=== PATIENT | female | born 1950 | race Caucasian/White ===

== ENCOUNTER 2018-01-06 08:33 | Inpatient (IN) ==
[2018-01-06] MEDS ORDERED: LEVOFLOXACIN INJ 500 MG in PREMIX 1 EACH IV STA (09:07)
[2018-01-06] MEDS ORDERED: FUROSEMIDE 100 MG/10 ML VIAL IV STA (09:07)
[2018-01-06 09:44] LABS: Basophils # 0.1 10*3/uL (0.0-0.2); Basophils % 0.3 % (0.0-0.8); Eosinophils % 0.1 % (0.00-10.9); Hemoglobin 14.8 GM/DL (12.0-16.0); Immature Granulocytes % 0.3 %; Immature Granulocytes Absolute 0.05 #; Lymphocytes # 0.4 10*3/uL (1.4-4.0); Lymphocytes % 2.8 % (21.3-54.2); Mean Corpuscular HGB Conc 32.9 GM/DL (32-36); Mean Corpuscular Hemoglobin 33 PG (27-34); Mean Corpuscular Volume 100.2 FL (87-102); Mean Platelet Volume 9.6 FL (9.6-12.0); Monocytes % 6.9 % (1.7-12.7); Neutrophils # 12.9 10*3/uL (1.4-7.4); Neutrophils % 89.6 % (38.7-73.9); Platelet Count 220 T/CUMM (130-400); Red Blood Count 4.49 MC/CUMM (3.8-5.5); Red Cell Distribution Width 14.1 % (9.3-17.3); White Blood Count 14.5 T/CUMM (4-12)
[2018-01-06] MEDS ORDERED: ALBUTEROL/IPRATROPIUM 3 ML NEB RESP TX STA (09:47)
[2018-01-06 10:22] LABS: Band Neutrophils 4 % (0-10); Giant Platelets Few; Hypochromasia 1+; Lymphocytes 3 % (20-55); Platelet Estimate Adequate; Segmented Neutrophils 81 % (50-85); Total Cells Counted 100
[2018-01-06] MEDS ORDERED: diphenhydrAMINE CAP 25 MG CAPSULE PO PRN (10:25)
[2018-01-06] MEDS ORDERED: DOCUSATE SODIUM 100 MG CAPSULE PO PRN (10:25)
[2018-01-06] MEDS ORDERED: guaiFENesin/DM ER 600-30 MG TABLET PO PRN (10:25)
[2018-01-06] MEDS ORDERED: ONDANSETRON 4 MG/2 ML VIAL IV PRN (10:25)
[2018-01-06] MEDS ORDERED: ACETAMINOPHEN 325 MG TABLET PO PRN (10:25)
[2018-01-06] MEDS ORDERED: ALBUTEROL 2.5 MG/3 ML NEB RESP TX PRN (10:27)
[2018-01-06 10:43] LABS: Alanine Aminotransferase 111 U/L (13-56); Albumin 2.8 G/DL (3.4-5.0); Alkaline Phosphatase 97 U/L (45-117); Aspartate Amino Transferase 75 U/L (0-37); Blood Urea Nitrogen 19 MG/DL (7-18); Calcium 9.1 MG/DL (8.5-10.1); Glucose 96 MG/DL (74-106); Osmolality,Calculated 280.4 MOS/KG (273-304); Potassium 4.3 MMOL/L (3.5-5.1); Sodium 140 MMOL/L (136-145); Total Protein 7.2 G/DL (6.4-8.3); Troponin I Only < 0.015 NG/ML (0.00-0.045)
[2018-01-06] MEDS: CHOLECALCIFEROL 1,000 UNIT TABLET PO SCH (12:25)
[2018-01-06] MEDS: VENLAFAXINE XR 75 MG CAPSULE PO SCH (12:25)
[2018-01-06] MEDS: EZETIMIBE 10 MG TABLET PO SCH (12:26)
[2018-01-06] MEDS: ASPIRIN CHEW 81 MG TABLET PO SCH (12:26)
[2018-01-06] MEDS: PANTOPRAZOLE 40 MG TABLET PO SCH (12:26)
[2018-01-06] MEDS: FUROSEMIDE 40 MG TABLET PO SCH (12:26)
[2018-01-06] MEDS: CYANOCOBALAMIN 500 MCG TABLET PO SCH (12:27)
[2018-01-06] MEDS: RAMIPRIL 5 MG CAPSULE PO SCH (12:27)
[2018-01-06] MEDS: ALBUTEROL/IPRATROPIUM 3 ML NEB RESP TX SCH ×2 (13:00→19:23)
[2018-01-06] MEDS: methylPREDNISolone SOD SUC 40 MG/1 ML VIAL IV SCH ×2 (13:37→21:11)
[2018-01-06] MEDS: MELOXICAM 7.5 MG TABLET PO SCH (21:10)
[2018-01-06] MEDS: POTASSIUM CHLORIDE 20 MEQ TABLET PO SCH (21:10)
[2018-01-06] MEDS: SIMVASTATIN 40 MG TABLET PO SCH (21:11)
[2018-01-06] MEDS: ATENOLOL 50 MG TABLET PO SCH (21:11)
[2018-01-06] MEDS: ENOXAPARIN 40 MG/0.4 ML SYRINGE SUBCUT SCH (21:14)
[2018-01-07] MEDS: ALBUTEROL/IPRATROPIUM 3 ML NEB RESP TX SCH ×4 (00:38→19:19)
[2018-01-07] MEDS: methylPREDNISolone SOD SUC 40 MG/1 ML VIAL IV SCH ×3 (05:47→20:17)
[2018-01-07 05:55] LABS: Basophils % 0.1 % (0.0-0.8); Hematocrit 44.3 VOL% (35.7-47.0); Hemoglobin 14.9 GM/DL (12.0-16.0); Immature Granulocytes % 0.5 %; Immature Granulocytes Absolute 0.06 #; Lymphocytes # 0.2 10*3/uL (1.4-4.0); Lymphocytes % 1.4 % (21.3-54.2); Mean Corpuscular HGB Conc 33.6 GM/DL (32-36); Mean Corpuscular Hemoglobin 33 PG (27-34); Mean Corpuscular Volume 96.5 FL (87-102); Mean Platelet Volume 9.9 FL (9.6-12.0); Monocytes # 0.3 10*3/uL (0.11-0.8); Monocytes % 2.1 % (1.7-12.7); Neutrophils # 11.7 10*3/uL (1.4-7.4); Neutrophils % 95.9 % (38.7-73.9); Platelet Count 230 T/CUMM (130-400); Red Blood Count 4.59 MC/CUMM (3.8-5.5); Red Cell Distribution Width 13.9 % (9.3-17.3); White Blood Count 12.2 T/CUMM (4-12)
[2018-01-07 06:16] LABS: Band Neutrophils 1 % (0-10); Giant Platelets Few; Hypochromasia 1+; Lymphocytes 1 % (20-55); Platelet Estimate Adequate; Segmented Neutrophils 95 % (50-85); Total Cells Counted 100
[2018-01-07 06:32] LABS: Calcium 8.8 MG/DL (8.5-10.1); Osmolality,Calculated 291.1 MOS/KG (273-304); Potassium 4.8 MMOL/L (3.5-5.1); Risk Ratio 5.06; Thyroid Stimulating Hormone 0.008 uIU/ml (0.358-3.74); VLDL CHOLESTEROL 18.4 MG/DL
[2018-01-07] MEDS: RAMIPRIL 5 MG CAPSULE PO SCH (08:41)
[2018-01-07] MEDS: VENLAFAXINE XR 75 MG CAPSULE PO SCH (08:42)
[2018-01-07] MEDS: FUROSEMIDE 40 MG TABLET PO SCH (08:42)
[2018-01-07] MEDS: MULTIVITAMIN (OCUVITE) TABLET PO SCH (08:42)
[2018-01-07] MEDS: CYANOCOBALAMIN 500 MCG TABLET PO SCH (08:42)
[2018-01-07] MEDS: CHOLECALCIFEROL 1,000 UNIT TABLET PO SCH (08:42)
[2018-01-07] MEDS: POTASSIUM CHLORIDE 20 MEQ TABLET PO SCH ×2 (08:42→20:15)
[2018-01-07] MEDS: ASPIRIN CHEW 81 MG TABLET PO SCH (08:42)
[2018-01-07] MEDS: PANTOPRAZOLE 40 MG TABLET PO SCH (08:42)
[2018-01-07] MEDS: MULTIVITAMIN (CENTRUM) TABLET PO SCH (08:42)
[2018-01-07] MEDS: EZETIMIBE 10 MG TABLET PO SCH (08:42)
[2018-01-07] MEDS ORDERED: LEVOFLOXACIN INJ 750 MG in PREMIX 1 EACH IV SCH (09:00)
[2018-01-07] MEDS: SIMVASTATIN 40 MG TABLET PO SCH (20:15)
[2018-01-07] MEDS: MELOXICAM 7.5 MG TABLET PO SCH (20:15)
[2018-01-07] MEDS: ATENOLOL 50 MG TABLET PO SCH (20:15)
[2018-01-07] MEDS: ENOXAPARIN 40 MG/0.4 ML SYRINGE SUBCUT SCH (20:16)
[2018-01-08] MEDS: ALBUTEROL/IPRATROPIUM 3 ML NEB RESP TX SCH ×2 (00:15→07:37)
[2018-01-08] MEDS: methylPREDNISolone SOD SUC 40 MG/1 ML VIAL IV SCH (04:36)
[2018-01-08 07:32] VITALS: BP 115/71
[2018-01-08] MEDS ORDERED: LEVOFLOXACIN 750 MG TABLET PO SCH (09:00)
[2018-01-08] MEDS: FUROSEMIDE 40 MG TABLET PO SCH (09:49)
[2018-01-08] MEDS: POTASSIUM CHLORIDE 20 MEQ TABLET PO SCH (09:49)
[2018-01-08] MEDS: EZETIMIBE 10 MG TABLET PO SCH (09:49)
[2018-01-08] MEDS: RAMIPRIL 5 MG CAPSULE PO SCH (09:49)
[2018-01-08] MEDS: ASPIRIN CHEW 81 MG TABLET PO SCH (09:49)
[2018-01-08] MEDS: CHOLECALCIFEROL 1,000 UNIT TABLET PO SCH (09:49)
[2018-01-08] MEDS: PANTOPRAZOLE 40 MG TABLET PO SCH (09:49)
[2018-01-08] MEDS: MULTIVITAMIN (CENTRUM) TABLET PO SCH (09:50)
[2018-01-08] MEDS: VENLAFAXINE XR 75 MG CAPSULE PO SCH (09:50)
[2018-01-08] MEDS: CYANOCOBALAMIN 500 MCG TABLET PO SCH (09:50)
[2018-01-08] MEDS: MULTIVITAMIN (OCUVITE) TABLET PO SCH (09:50)
== END 2018-01-08 10:45 | disposition home or self-care (01) | DRG 195 ==
LOC: EDBD → EDUNIT# → N.ED 08:33 → N.EDINP 09:57 → SUATTDRO 09:57 → N.2E 11:44
PROVIDERS: ADMIT Emergency Medicine; ATTEND Internal Medicine